=== PATIENT | female | born 1975 | race Caucasian/White ===

== ENCOUNTER 2023-03-05 17:43 | Emergency (ER) | payer OTHER ==
[2023-03-05 17:57] VITALS: BP 151/92; PULSE 84; RESP 18; TEMP 98.5; BMI 22.6
== END 2023-03-05 19:13 | disposition home or self-care (01) ==
LOC: JERFT 17:43 → JER 17:43 → JERFT 19:13
PROC: 0H96XZZ Drainage of Back Skin, External Approach (ICD-10-PCS; principal; 2023-03-05)
DX: L02.212 Cutaneous abscess of back [any part, except buttock and flank] (principal); L72.0 Epidermal cyst
CPT/HCPCS: 99283-25